=== PATIENT | male | born 1930 | race Caucasian/White ===

== ENCOUNTER 2018-06-30 21:58 | Emergency (ER) | payer OTHER ==
[~2018-06-30] VITALS: Ht 165.1 cm; Wt 77.1 kg
[2018-06-30 22:14] VITALS: Ht 165.1 cm; Wt 77.1 kg
[2018-06-30 23:41] VITALS: BP 138/98
== END 2018-06-30 23:41 | disposition home or self-care (01) ==
LOC: ED 21:58
DX: K59.00 Constipation, unspecified (principal); I10 Essential (primary) hypertension; E11.9 Type 2 diabetes mellitus without complications; Z88.0 Allergy status to penicillin